=== PATIENT | female | born 1980 | race Caucasian/White ===

== ENCOUNTER 2017-05-05 11:30 | Observation (INO) ==
[2017-05-05] MEDS ORDERED: *HR* HYDROmorphone (PF) 1 MG/ML SYRINGE IVP ONE (11:54)
[2017-05-05] MEDS ORDERED: Ondansetron 4 MG/2 ML VIAL IVP ONE ×2 (11:54→11:58)
--- NOTE | 2017-05-05 11:54 | Emergency Department Note ---
Disposition Clinical Impression: Intractable abdominal pain Disposition: Admitted As Inpatient Condition: Good General Adult HPI - General Chief complaint: ED Abdominal Pain Stated complaint: RUQ pain Time Seen by Provider: 05/05/17 11:51 Source: patient Limitations: no limitations - History of Present Illness Pain Scale: 8 - Related Data Home Medications Medication Instructions Recorded Confirmed Pioglitazone [Actos] 30 mg PO DAILY 02/17/15 05/05/17 Liraglutide [Victoza 3-Kip] 1.2 mg SQ DAILY 03/28/17 05/05/17 Hyoscyamine SL [Levsin Sl] 0.125 mg SL TID 05/04/17 05/05/17 Previous Rx's Medication Instructions Recorded Promethazine [Phenergan] 25 mg PO Q8HR PRN #10 tablet 05/06/17 Allergies Allergy/AdvReac Type Severity Reaction Status Date / Time guaifenesin [From Entex LA] Allergy Mild Rash Verified 04/03/17 03:51 phenylephrine [From Entex LA] Allergy Mild Rash Verified 04/03/17 03:51 phenylpropanolamine Allergy Mild Rash Verified 04/03/17 03:51 [From Entex LA] Past Medical History - Past Medical History Medical history: Reports: cirrhosis, diabetes Surgical history: Reports: , cholecystectomy, hysterectomy Psychiatric history: Reports: depression - Social History Smoking Status: Never smoker Smokeless Tobacco Status: No Alcohol use: Reports: none Drug use: Reports: none Physical Exam - General Limitations: no limitations General appearance: alert, in no apparent distress Course Vital Signs Temperature 98.2 F 05/05/17 11:46 Pulse Rate 70 05/05/17 11:46 Respiratory Rate 18 05/05/17 11:46 Blood Pressure 134/84 05/05/17 11:46 O2 Sat by Pulse Oximetry 99 05/05/17 11:46 Temperature 97.8 F 05/06/17 10:36 Pulse Rate 69 05/06/17 10:36 Respiratory Rate 16 05/06/17 10:36 Blood Pressure 133/82 05/06/17 10:36 O2 Sat by Pulse Oximetry 97 05/06/17 10:36 Oxygen Delivery Oxygen Delivery Room Air Medical Decision Making - Lab Data Result diagrams: 05/05/17 12:07 05/06/17 05:08 Lab Results 12/29/17 12/29/17 12/29/17 Range/Units 12:07 12:07 12:07 WBC 10.1 (4.3-11.1) K/mcL RBC 4.94 (3.82-4.97) M/mcL Hgb 13.6 (11.5-15.4) g/dL Hct 41.7 (35.3-44.9) % MCV 84.4 (83.0-100.0) fL MCH 27.5 L (28.0-33.3) pg MCHC 32.6 (31.6-35.5) g/dL RDW 12.3 (11.5-14.5) % Plt Count 248 (140-400) K/mcL MPV 9.2 L (9.4-12.4) fL Immature Gran % 0.5 (0-4) % Seg Neutrophils % 78.8 % Lymphocytes % 14.2 % Monocytes % 6.3 % Eosinophils % 0.0 % Basophils % 0.2 % Neutrophils # 8.0 (1.6-8.9) K/mcL Lymphocytes # 1.4 (0.6-4.6) K/mcL Monocytes # 0.6 (0.0-1.3) K/mcL Eosinophils # 0.0 (0.0-0.6) K/mcL Basophils # 0.0 (0.0-0.2) K/mcL PT 9.9 (9.4-12.1) Seconds INR 0.9 Sodium 137 (136-145) mEq/L Potassium 3.7 (3.5-5.1) mEq/L Chloride 103 (98-107) mEq/L Carbon Dioxide 29 (23-29) mEq/L BUN 10 (6-20) mg/dL Creatinine 0.65 (0.60-1.20) mg/dL Est GFR ( Amer) > 60 (> 60) Est GFR (Non-Af Amer) > 60 (> 60) BUN/Creatinine Ratio 15 (6-26) Glucose 352 H (70-105) mg/dL Calculated Osmolality 297 (280-300) Lactic Acid (0.5-2.2) mmol/L Calcium 8.8 (8.6-10.3) mg/dL Total Bilirubin 0.3 (0.3-1.0) mg/dL Direct Bilirubin (0.0-0.2) mg/dL Indirect Bilirubin (0.0-1.2) mg/dL AST 19 (13-39) Units/L ALT 38 (7-52) Units/L Alkaline Phosphatase 128 H (34-104) Units/L Serum Total Protein 6.1 L (6.4-8.9) g/dL Albumin 3.9 (3.5-5.7) g/dL Globulin 2.2 L (2.4-3.5) g/dL Albumin/Globulin Ratio 1.8 (1.1-2.2) Amylase 27 L (29-103) Units/L Lipase 170 H (11-82) Units/L Urine Color (Yellow) Urine Clarity (Clear) Urine pH (5.0-8.0) pH Units Ur Specific [place] (1.010-1.025) Urine Protein (Neg-Trace) mg/dL Urine Glucose (UA) (Normal) mg/dL Urine Ketones (Negative) mg/dL Urine Blood (Negative) Urine Nitrite (Negative) Urine Bilirubin (Negative) Urine Urobilinogen (Normal) mg/dL Ur Leukocyte Esterase (Negative) Ur Culture Indicated? (NO) Urine Test (Negative) 05/05/17 05/05/17 05/05/17 Range/Units 12:36 12:36 13:41 WBC (4.3-11.1) K/mcL RBC (3.82-4.97) M/mcL Hgb (11.5-15.4) g/dL Hct (35.3-44.9) % MCV (83.0-100.0) fL MCH (28.0-33.3) pg MCHC (31.6-35.5) g/dL RDW (11.5-14.5) % Plt Count (140-400) K/mcL MPV (9.4-12.4) fL Immature Gran % (0-4) % Seg Neutrophils % % Lymphocytes % % Monocytes % % Eosinophils % % Basophils % % Neutrophils # (1.6-8.9) K/mcL Lymphocytes # (0.6-4.6) K/mcL Monocytes # (0.0-1.3) K/mcL Eosinophils # (0.0-0.6) K/mcL Basophils # (0.0-0.2) K/mcL PT (9.4-12.1) Seconds INR Sodium (136-145) mEq/L Potassium (3.5-5.1) mEq/L Chloride (98-107) mEq/L Carbon Dioxide (23-29) mEq/L BUN (6-20) mg/dL Creatinine (0.60-1.20) mg/dL Est GFR ( Amer) (> 60) Est GFR (Non-Af Amer) (> 60) BUN/Creatinine Ratio (6-26) Glucose (70-105) mg/dL Calculated Osmolality (280-300) Lactic Acid 1.3 (0.5-2.2) mmol/L Calcium (8.6-10.3) mg/dL Total Bilirubin 0.3 (0.3-1.0) mg/dL Direct Bilirubin 0.0 (0.0-0.2) mg/dL Indirect Bilirubin 0.3 (0.0-1.2) mg/dL AST 20 (13-39) Units/L ALT 38 (7-52) Units/L Alkaline Phosphatase 123 H (34-104) Units/L Serum Total Protein 6.0 L (6.4-8.9) g/dL Albumin 3.7 (3.5-5.7) g/dL Globulin 2.3 L (2.4-3.5) g/dL Albumin/Globulin Ratio 1.6 (1.1-2.2) Amylase (29-103) Units/L Lipase (11-82) Units/L Urine Color (Yellow) Urine Clarity (Clear) Urine pH (5.0-8.0) pH Units Ur Specific [place] (1.010-1.025) Urine Protein (Neg-Trace) mg/dL Urine Glucose (UA) (Normal) mg/dL Urine Ketones (Negative) mg/dL Urine Blood (Negative) Urine Nitrite (Negative) Urine Bilirubin (Negative) Urine Urobilinogen (Normal) mg/dL Ur Leukocyte Esterase (Negative) Ur Culture Indicated? (NO) Urine Test Negative (Negative) 05/05/17 Range/Units 13:47 WBC (4.3-11.1) K/mcL RBC (3.82-4.97) M/mcL Hgb (11.5-15.4) g/dL Hct (35.3-44.9) % MCV (83.0-100.0) fL MCH (28.0-33.3) pg MCHC (31.6-35.5) g/dL RDW (11.5-14.5) % Plt Count (140-400) K/mcL MPV (9.4-12.4) fL Immature Gran % (0-4) % Seg Neutrophils % % Lymphocytes % % Monocytes % % Eosinophils % % Basophils % % Neutrophils # (1.6-8.9) K/mcL Lymphocytes # (0.6-4.6) K/mcL Monocytes # (0.0-1.3) K/mcL Eosinophils # (0.0-0.6) K/mcL Basophils # (0.0-0.2) K/mcL PT (9.4-12.1) Seconds INR Sodium (136-145) mEq/L Potassium (3.5-5.1) mEq/L Chloride (98-107) mEq/L Carbon Dioxide (23-29) mEq/L BUN (6-20) mg/dL Creatinine (0.60-1.20) mg/dL Est GFR ( Amer) (> 60) Est GFR (Non-Af Amer) (> 60) BUN/Creatinine Ratio (6-26) Glucose (70-105) mg/dL Calculated Osmolality (280-300) Lactic Acid (0.5-2.2) mmol/L Calcium (8.6-10.3) mg/dL Total Bilirubin (0.3-1.0) mg/dL Direct Bilirubin (0.0-0.2) mg/dL Indirect Bilirubin (0.0-1.2) mg/dL AST (13-39) Units/L ALT (7-52) Units/L Alkaline Phosphatase (34-104) Units/L Serum Total Protein (6.4-8.9) g/dL Albumin (3.5-5.7) g/dL Globulin (2.4-3.5) g/dL Albumin/Globulin Ratio (1.1-2.2) Amylase (29-103) Units/L Lipase (11-82) Units/L Urine Color Yellow (Yellow) Urine Clarity Clear (Clear) Urine pH 6.5 (5.0-8.0) pH Units Ur Specific [place] > 1.030 H (1.010-1.025) Urine Protein Negative (Neg-Trace) mg/dL Urine Glucose (UA) >=1000 H (Normal) mg/dL Urine Ketones 40 H (Negative) mg/dL Urine Blood Negative (Negative) Urine Nitrite Negative (Negative) Urine Bilirubin Negative (Negative) Urine Urobilinogen Normal (Normal) mg/dL Ur Leukocyte Esterase Negative (Negative) Ur Culture Indicated? NO (NO) Urine Test (Negative) Attestation Statement - Attestation Attestation: I examined this patient and my medical decision-making was reviewed with the Resident Physician. I agree with the documented findings, disposition and treatment plan as described except to the extent set forth below. [id number] time Patient complains of right upper quadrant abdominal pain. She underwent an ERCP by gastroenterology yesterday with stent deployment. She is uncomfortable appearing on exam.
[2017-05-05] MEDS ORDERED: 0.9 % Sodium Chloride 1,000 ML IVC ONE (11:58)
[2017-05-05] MEDS ORDERED: *HR* Morphine 2 MG/ML SYRINGE IVP ONE (11:58)
[2017-05-05 12:14] LABS: Basophils % 0.2 %; Hematocrit 41.7 % (35.3-44.9); Hemoglobin 13.6 g/dL (11.5-15.4); Immature Granulocytes % 0.5 % (0-4); Lymphocytes # 1.4 K/mcL (0.6-4.6); Lymphocytes % 14.2 %; Mean Corpuscular HGB Conc 32.6 g/dL (31.6-35.5); Mean Corpuscular Hemoglobin 27.5 pg (28.0-33.3); Mean Corpuscular Volume 84.4 fL (83.0-100.0); Mean Platelet Volume 9.2 fL (9.4-12.4); Monocytes # 0.6 K/mcL (0.0-1.3); Monocytes % 6.3 %; Platelet Count 248 K/mcL (140-400); Red Blood Count 4.94 M/mcL (3.82-4.97); Red Cell Distribution Width 12.3 % (11.5-14.5); Segmented Neutrophils % 78.8 %
--- NOTE | 2017-05-05 12:17 | Emergency Department Note ---
Disposition Clinical Impression: Intractable abdominal pain Disposition: Admitted As Inpatient Condition: Good Referrals: Julieta Martinez, HELP DESK REPRESENTATIVE [Primary Care Provider] - Forms: ED Satisfaction Letter, Work/School Release Time of Disposition: 13:42 Abdominal Pain HPI - General Chief Complaint: ED Abdominal Pain Stated Complaint: RUQ pain Time Seen by Provider: 05/05/17 11:51 Source: patient Mode of arrival: ambulatory Limitations: no limitations Nursing Notes Reviewed: Yes Vital Signs Reviewed: Yes - History of Present Illness HPI Narrative: Patient was sent over from gastroenterology for admission. Patient had an ERCP done yesterday and was unable to place a stent in the sphincter LOS, but did have a pancreatic duct stent placed. Since then, the patient has had progressively worsening abdominal pain and nausea. No vomiting, fever, chest pain or shortness of breath. No diarrhea. Was sent over under the impression that she would be a direct admission, however, there were no admission orders ordered admitting diagnosis so she was brought here. States that her pain is in her right side radiating to her mid abdomen, fairly constant, sharp and stabbing in nature. Sometimes worse after eating. Has had similar symptoms previously. Pain Scale: 8 - Related Data Home Medications Medication Instructions Recorded Confirmed Pioglitazone [Actos] 30 mg PO DAILY 02/17/15 05/04/17 Liraglutide [Victoza 3-Kip] 1.2 mg SQ DAILY 03/28/17 05/04/17 Hyoscyamine SL [Levsin SL] 0.125 mg SL TID 05/04/17 05/04/17 Promethazine [Phenergan] 25 mg PO Q8HR 05/04/17 05/04/17 Allergies Allergy/AdvReac Type Severity Reaction Status Date / Time guaifenesin [From Entex LA] Allergy Mild Rash Verified 04/03/17 03:51 phenylephrine [From Entex LA] Allergy Mild Rash Verified 04/03/17 03:51 phenylpropanolamine Allergy Mild Rash Verified 04/03/17 03:51 [From Entex LA] All systems ED: reviewed and negative except as stated. Constitutional: Denies: fever Cardiovascular: Denies: chest pain Gastrointestinal: Reports: abdominal pain, nausea Genitourinary: Denies: dysuria Musculoskeletal: Denies: back pain Psychiatric: Denies: anxiety Abdominal Pain PMH - Past Medical History Medical history: Reports: cirrhosis, diabetes Female Surgical History: Reports: , hysterectomy, Tonsillectomy Psychiatric history: Reports: depression - Social History Smoking status: Never smoker Alcohol use: Reports: none Drug use: Reports: none Physical Exam - General Limitations: no limitations General appearance: alert, in no apparent distress - Head Head exam: atraumatic, normocephalic, normal inspection - Chest Chest inspection: Present: normal inspection, symmetric chest wall rise - Respiratory Respiratory exam: Present: normal lung sounds bilaterally - Cardiovascular Cardiovascular exam: Present: regular rate, normal rhythm, normal heart sounds - Abdominal Exam Abdominal exam: Present: soft, tenderness. Absent: guarding, rebound Abdominal tenderness: Present: RUQ, epigastrium - Extremities Exam Extremities exam: Present: normal inspection, full ROM. Absent: tenderness, pedal edema - Back Exam Back exam: Present: normal inspection, full ROM. Absent: tenderness - Neurological Exam Neurological exam: Present: alert, oriented X3 - Psychiatric Psychiatric exam: Present: normal affect, normal mood - Skin Skin exam: Present: warm, dry, intact, normal color Course Course Narrative: Sent over for admission after an ERCP yesterday. Having abdominal pain. Labs, fluids, pain meds anti-emetics CT with IV contrast and admission. Patient overall looks well - Reevaluation(s) Reevaluation #1: Dr. Martin down to eval patient in ED. would like her admitted for intractable abd pain. Vital Signs Temperature 98.2 F 05/05/17 11:46 Pulse Rate 70 05/05/17 11:46 Respiratory Rate 18 05/05/17 11:46 Blood Pressure 134/84 05/05/17 11:46 O2 Sat by Pulse Oximetry 99 05/05/17 11:46 Temperature 98.2 F 05/05/17 11:46 Pulse Rate 73 05/05/17 13:22 Respiratory Rate 12 05/05/17 13:22 Blood Pressure 134/86 05/05/17 13:22 O2 Sat by Pulse Oximetry 99 05/05/17 11:46 Oxygen Delivery Oxygen Delivery Room Air Abdominal Pain - Medical Records Medical records reviewed: Yes I reviewed the patient's medical records. - Lab Data Lab results reviewed: Yes I reviewed the patient's lab results. Result diagrams: 05/05/17 12:07 05/05/17 12:07 Lab Results 05/05/17 05/05/17 05/05/17 Range/Units 12:07 12:07 12:07 WBC 10.1 (4.3-11.1) K/mcL RBC 4.94 (3.82-4.97) M/mcL Hgb 13.6 (11.5-15.4) g/dL Hct 41.7 (35.3-44.9) % MCV 84.4 (83.0-100.0) fL MCH 27.5 L (28.0-33.3) pg MCHC 32.6 (31.6-35.5) g/dL RDW 12.3 (11.5-14.5) % Plt Count 248 (140-400) K/mcL MPV 9.2 L (9.4-12.4) fL Immature Gran % 0.5 (0-4) % Seg Neutrophils % 78.8 % Lymphocytes % 14.2 % Monocytes % 6.3 % Eosinophils % 0.0 % Basophils % 0.2 % Neutrophils # 8.0 (1.6-8.9) K/mcL Lymphocytes # 1.4 (0.6-4.6) K/mcL Monocytes # 0.6 (0.0-1.3) K/mcL Eosinophils # 0.0 (0.0-0.6) K/mcL Basophils # 0.0 (0.0-0.2) K/mcL PT 9.9 (9.4-12.1) Seconds INR 0.9 Sodium 137 (136-145) mEq/L Potassium 3.7 (3.5-5.1) mEq/L Chloride 103 (98-107) mEq/L Carbon Dioxide 29 (23-29) mEq/L BUN 10 (6-20) mg/dL Creatinine 0.65 (0.60-1.20) mg/dL Est GFR ( Amer) > 60 (> 60) Est GFR (Non-Af Amer) > 60 (> 60) BUN/Creatinine Ratio 15 (6-26) Glucose 352 H (70-105) mg/dL Calculated Osmolality 297 (280-300) Lactic Acid (0.5-2.2) mmol/L Calcium 8.8 (8.6-10.3) mg/dL Total Bilirubin 0.3 (0.3-1.0) mg/dL Direct Bilirubin (0.0-0.2) mg/dL Indirect Bilirubin (0.0-1.2) mg/dL AST 19 (13-39) Units/L ALT 38 (7-52) Units/L Alkaline Phosphatase 128 H (34-104) Units/L Serum Total Protein 6.1 L (6.4-8.9) g/dL Albumin 3.9 (3.5-5.7) g/dL Globulin 2.2 L (2.4-3.5) g/dL Albumin/Globulin Ratio 1.8 (1.1-2.2) Amylase 27 L (29-103) Units/L Lipase 170 H (11-82) Units/L 05/05/17 05/05/17 Range/Units 12:36 12:36 WBC (4.3-11.1) K/mcL RBC (3.82-4.97) M/mcL Hgb (11.5-15.4) g/dL Hct (35.3-44.9) % MCV (83.0-100.0) fL MCH (28.0-33.3) pg MCHC (31.6-35.5) g/dL RDW (11.5-14.5) % Plt Count (140-400) K/mcL MPV (9.4-12.4) fL Immature Gran % (0-4) % Seg Neutrophils % % Lymphocytes % % Monocytes % % Eosinophils % % Basophils % % Neutrophils # (1.6-8.9) K/mcL Lymphocytes # (0.6-4.6) K/mcL Monocytes # (0.0-1.3) K/mcL Eosinophils # (0.0-0.6) K/mcL Basophils # (0.0-0.2) K/mcL PT (9.4-12.1) Seconds INR Sodium (136-145) mEq/L Potassium (3.5-5.1) mEq/L Chloride (98-107) mEq/L Carbon Dioxide (23-29) mEq/L BUN (6-20) mg/dL Creatinine (0.60-1.20) mg/dL Est GFR ( Amer) (> 60) Est GFR (Non-Af Amer) (> 60) BUN/Creatinine Ratio (6-26) Glucose (70-105) mg/dL Calculated Osmolality (280-300) Lactic Acid 1.3 (0.5-2.2) mmol/L Calcium (8.6-10.3) mg/dL Total Bilirubin 0.3 (0.3-1.0) mg/dL Direct Bilirubin 0.0 (0.0-0.2) mg/dL Indirect Bilirubin 0.3 (0.0-1.2) mg/dL AST 20 (13-39) Units/L ALT 38 (7-52) Units/L Alkaline Phosphatase 123 H (34-104) Units/L Serum Total Protein 6.0 L (6.4-8.9) g/dL Albumin 3.7 (3.5-5.7) g/dL Globulin 2.3 L (2.4-3.5) g/dL Albumin/Globulin Ratio 1.6 (1.1-2.2) Amylase (29-103) Units/L Lipase (11-82) Units/L - Radiology Data Radiology results reviewed: Yes I reviewed the patient's radiology results. - EKG Data EKG attestation: Yes I reviewed and interpreted this EKG. EKG results narrative: Sinus rhythm, rate 78, WA interval 150, QRS 85, QTC 406, normal axis, no acute ischemic changes, no previous available
[2017-05-05 12:19] LABS: INR 0.9; Prothrombin Time 9.9 Seconds (9.4-12.1)
[2017-05-05 12:29] LABS: Alanine Aminotransferase 38 Units/L (7-52); Albumin 3.9 g/dL (3.5-5.7); Albumin/Globulin Ratio 1.8 (1.1-2.2); Alkaline Phosphatase 128 Units/L (34-104); Amylase 27 Units/L (29-103); Aspartate Amino Transferase 19 Units/L (13-39); BUN/Creatinine Ratio 15 (6-26); Bilirubin,Total 0.3 mg/dL (0.3-1.0); Blood Urea Nitrogen 10 mg/dL (6-20); Calcium 8.8 mg/dL (8.6-10.3); Carbon Dioxide 29 mEq/L (23-29); Chloride 103 mEq/L (98-107); Globulin 2.2 g/dL (2.4-3.5); Glucose 352 mg/dL (70-105); Lipase 170 Units/L (11-82); Osmolality,Calculated 297 (280-300); Potassium 3.7 mEq/L (3.5-5.1); Sodium 137 mEq/L (136-145); Total Protein 6.1 g/dL (6.4-8.9); eGFR For African Americans > 60 (> 60); eGFR For Non-African Americans > 60 (> 60)
[2017-05-05] MEDS ORDERED: Hyoscyamine 0.5 MG/ML MLS IVP ONE (12:36)
[2017-05-05 13:00] LABS: Albumin 3.7 g/dL (3.5-5.7); Albumin/Globulin Ratio 1.6 (1.1-2.2); Bilirubin,Indirect 0.3 mg/dL (0.0-1.2); Bilirubin,Total 0.3 mg/dL (0.3-1.0); Globulin 2.3 g/dL (2.4-3.5)
[2017-05-05 13:54] LABS: Bilirubin,Urine Negative (Negative); Blood,Urine Negative (Negative); Clarity,Urine Clear (Clear); Color,Urine Yellow (Yellow); Glucose,Urine (UA) >=1000 mg/dL (Normal); Ketones,Urine 40 mg/dL (Negative); Leukocyte Esterase,Urine Negative (Negative); Nitrite,Urine Negative (Negative); PH,Urine 6.5 pH Units (5.0-8.0); Protein,Urine Negative (Neg-Trace); Specific Gravity,Urine > 1.030 (1.010-1.025); Urobilinogen,Urine Normal (Normal)
[2017-05-05] MEDS ORDERED: Mag Hydrox/Al Hydrox/Simeth 30 ML UDC PO PRN (14:25)
[2017-05-05] MEDS ORDERED: Ondansetron 4 MG/2 ML VIAL IVP PRN (14:25)
[2017-05-05] MEDS ORDERED: Naloxone 0.4 MG/ML INJ IVP PRN (14:25)
[2017-05-05] MEDS ORDERED: Acetaminophen 325 MG TABLET PO PRN (14:25)
[2017-05-05] MEDS ORDERED: MOM Conc 10 ML UD.LIQ PO PRN (14:25)
--- NOTE | 2017-05-05 14:34 | Internal Med History&Physical ---
<Nikhil Turcios - Last Filed: 05/05/17 14:31> Date of Encounter: 05/05/17 Time of Encounter: 14:31 Assessment and Plan (1) Abdominal pain Status: Acute - Had ERCP yesterday with stent deployed in the pancreatic duct. - mildly elevated lipase likely due to abd procedure. - Pain without rebound, likely procedure related. - supportive care with IVF and pain meds. - GI following. Qualifiers: Abdominal location: right upper quadrant Qualified Code(s): R10.11 - Right upper quadrant pain (2) S/P ERCP Status: Acute - stable and monitoring. (3) Diabetes Status: Chronic - Accu check AC+HS. - insulin sliding scale. Qualifiers: Diabetes mellitus type: type 2 Diabetes mellitus complication status: without complication Diabetes mellitus correction insulin use: without gum machine filler use Qualified Code(s): E11.9 - Type 2 diabetes mellitus without complications Internal Medicine - H&P: HPI History of present illness: Ms. Valente is a 36 year old female with past medical history for biliary obstruction, diabetes, and cholecystitis status post cholecystectomy presented with abdominal pain left gastrointestinal procedure. Patient was sent over from gastroenterology for admission. Patient had an ERCP done yesterday and was unable to place a stent in the sphincter LOS, but did have a pancreatic duct stent placed. Since then, the patient has had progressively worsening abdominal pain and nausea. No vomiting, fever, chest pain or shortness of breath. No diarrhea. Was sent over under the impression that she would be a direct admission, however, there were no admission orders ordered admitting diagnosis so she was brought here. States that her pain is in her right side radiating to her mid abdomen, fairly constant, sharp and stabbing in nature. Sometimes worse after eating. Has had similar symptoms previously. At the ED, vital signs were stable, physical exam revealed right upper quadrant tenderness without rebound. Labs revealed slightly elevated lipase. Due to her symptoms, she will be admitted for observation. Past Med Surg Social Fam HX - Past Medical History Medical history: cirrhosis, diabetes Psychiatric history: depression - Past Surgical History Surgical History: , cholecystectomy, hysterectomy - Social History Smoking Status: Never smoker Smokeless Tobacco Status: No Alcohol use: none Drug use: none - Family History Mother Adopted: No Family Member Ethnicity: Non- Living Status: Still Living Hx Family Cardiac Disorders: Yes (HYPERTENSION) Hx Family Respiratory Disorders: Yes (ASTHMA) Hx Family Cancer: No Hx Family GI Disorders: No Hx Family Endocrine Disorder: Yes (DIABETES) Hx Family Neuromuscular Disorders: No Hx Family Neurologic Disorders: No Hx Family HEENT Disorders: No Hx Family Autoimmune Disorders: No Internal Medicine - H&P: Meds Pioglitazone [Actos] 30 mg PO DAILY 02/17/15 [History] Liraglutide [Victoza 3-Kip] 1.2 mg SQ DAILY 03/28/17 [History] Hyoscyamine SL [Levsin Sl] 0.125 mg SL TID 05/04/17 [History] Promethazine [Phenergan] 25 mg PO Q8HR PRN #10 tablet 05/06/17 [Rx] 3 Allergy/AdvReac Type Severity Reaction Status Date / Time guaifenesin [From Entex LA] Allergy Mild Rash Verified 04/03/17 03:51 phenylephrine [From Entex LA] Allergy Mild Rash Verified 04/03/17 03:51 phenylpropanolamine Allergy Mild Rash Verified 04/03/17 03:51 [From Entex LA] All Systems PM: A 10-system review of systems was performed and is negative for pertinent findings except as documented above in the HPI. Review of systems: REVIEW OF SYSTEMS: CONSTITUTIONAL: No weight loss, fever, chills, weakness or fatigue. HEENT: Eyes: No visual loss, blurred vision, double vision or yellow sclerae. Ears, Nose, Throat: No hearing loss, sneezing, congestion, runny nose or sore throat. SKIN: No rash or itching. CARDIOVASCULAR: No chest pain, chest pressure or chest discomfort. No palpitations or edema. RESPIRATORY: No shortness of breath, cough or sputum. GASTROINTESTINAL: see HPI. GENITOURINARY: No dysuria, urgency, or frequency. NEUROLOGICAL: No headache, dizziness, syncope, paralysis, ataxia, numbness or tingling in the extremities. No change in bowel or bladder control. MUSCULOSKELETAL: No muscle, back pain, joint pain or stiffness. HEMATOLOGIC: No anemia, bleeding or bruising. LYMPHATICS: No enlarged nodes. No history of splenectomy. PSYCHIATRIC: No history of depression or anxiety. ENDOCRINOLOGIC: No reports of sweating, cold or heat intolerance. No polyuria or polydipsia. - Constitutional Vitals: Temp Pulse Resp BP Pulse Ox 98.2 F 73 12 134/86 99 05/05/17 11:46 05/05/17 13:22 05/05/17 13:22 05/05/17 13:22 05/05/17 11:46 Exam: PHYSICAL EXAMINATION: GENERAL APPEARANCE: The patient is alert, oriented and in no acute distress. HEENT: Head is normocephalic. The sinuses are nontender. Pupils are equal and reactive. The nares are patent. Oropharynx clear without lesions. NECK: Supple without lymphadenopathy. HEART: Regular rate and rhythm. LUNGS: No crackles or wheezes are heard. ABDOMEN: Soft, tender to deep palpation at the RUQ without rebound. Inguinal area is normal. EXTREMITIES: Without cyanosis, clubbing or edema. NEUROLOGICAL: Gross nonfocal. SKIN: Warm and dry without any rash. Internal Med - H&P Results - Labs CBC & Chem 7: 05/05/17 12:07 05/05/17 12:07 <Mairan Santos - Last Filed: 06/02/17 09:15> Date of Encounter: 06/02/17 Internal Medicine - H&P: HPI History of present illness: Ms. Valente is a 37 year old female All Systems PM: A 10-system review of systems was performed and is negative for pertinent findings except as documented above in the HPI. - Constitutional Vitals: Temp Pulse Resp BP Pulse Ox 97.8 F 69 16 133/82 97 05/06/17 10:36 05/06/17 10:36 05/06/17 10:36 05/06/17 10:36 05/06/17 10:36 Internal Med - H&P Results - Labs CBC & Chem 7: 05/05/17 12:07 05/06/17 05:08 - Attending Attestation I personally and independently interviewed and examined the patient with PLANE TENDER, and I reviewed the patient's medical record with her. I am in agreement with the assessment and proposed treatment plan. I discussed my findings and recommendation with the patient and answer all questions. The patient's medical records were edited to accurately reflect this encounter.
[2017-05-05] MEDS: 0.9 % Sodium Chloride 1,000 ML IVC SCH (15:32)
[2017-05-05] MEDS: Hyoscyamine SL 0.125 MG TAB.SUBL SL SCH ×2 (15:32→21:22)
[2017-05-05] MEDS: *HR* HYDROmorphone (PF) 1 MG/ML SYRINGE IVP PRN ×2 (15:48→21:22)
--- NOTE | 2017-05-05 18:04 | Gastroenterology Consult Note ---
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 Now with similar episode but had ERCP yesterday which could have precipitated the attack. Lipase mildly elevated. LFTS normal, CT negative for acute path. Rec: NPO IV fluids at 200 ml /hr Pain control If pain better in am then can be started on clear and pt to f/u with GI as out pt next week. (2) Abdominal pain Current Visit: Yes Status: Acute Qualifiers: Abdominal location: right upper quadrant Qualified Code(s): R10.11 - Right upper quadrant pain - Time Spent With Patient Total time spent is greater than 50% in coordination of care (as documented) at patient's floor/unit and/or counseling patient: GI History of Present Illness - Data of Consult Requesting Physician: Kandi Munoz MD - Consult Narrative Reason for consult: Abd pain History of present illness: Ms. 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 Pt had yesterday an ERCP for poss SOD dysfunction. Post procedure had abd pain at home , not better this am so came to ER and had CT doen along with labs. Ct abd negative for acute path and lipase only mildly elevated. per pt pain is similar to her previous SOD attacks with pain in RUQ along with nausea. Felling cold, but no fever , passing gas, no rash, some difficulty swallowing but per pt can be due to dry throat. Admitted for pain control/ Pt was seen in ER and case was d/W with ER attending. Past Med Surg Social Fam HX - Past Medical History Medical history: cirrhosis, diabetes Psychiatric history: depression - Past Surgical History Surgical History: , cholecystectomy, hysterectomy - Social History Smoking Status: Never smoker Smokeless Tobacco Status: No Alcohol use: none Drug use: none - Family History Mother Adopted: No Family Member Ethnicity: Non- Living Status: Still Living Hx Family Cardiac Disorders: Yes (HYPERTENSION) Hx Family Respiratory Disorders: Yes (ASTHMA) Hx Family Cancer: No Hx Family GI Disorders: No Hx Family Endocrine Disorder: Yes (DIABETES) Hx Family Neuromuscular Disorders: No Hx Family Neurologic Disorders: No Hx Family HEENT Disorders: No Hx Family Autoimmune Disorders: No Review of Systems: ROS as per [employer]. No SOB or pulpatation. No fever. - Constitutional Vitals: Temp Pulse Resp BP Pulse Ox 98 F 93 15 121/77 97 05/05/17 16:07 05/05/17 16:07 05/05/17 16:07 05/05/17 16:07 05/05/17 16:07 General appearance: Present: A&O X 3, pleasant - Head Head exam: Present: atraumatic - Eye Eye exam: Present: sclera anicteric - Neck Neck exam general surgery: Present: supple - GI/Abdominal GI/Abdominal exam: Present: soft Additional comments: tander RUQ Results - Labs CBC & Chem 7: 05/05/17 12:07 05/05/17 12:07 Labs: Last Result Calcium 8.8 mg/dL (8.6-10.3) 05/05/17 12:07 Entire Visit Hgb 13.6 g/dL (11.5-15.4) 05/05/17 12:07 Hct 41.7 % (35.3-44.9) 05/05/17 12:07 PT 9.9 Seconds (9.4-12.1) 05/05/17 12:07 Total Bilirubin 0.3 mg/dL (0.3-1.0) 05/05/17 12:36 AST 20 Units/L (13-39) 05/05/17 12:36 ALT 38 Units/L (7-52) 05/05/17 12:36 Amylase 27 Units/L (29-103) L 05/05/17 12:07 Lipase 170 Units/L (11-82) H 05/05/17 12:07 - ABG ABG results: PT/INR, D-dimer PT 9.9 Seconds (9.4-12.1) 05/05/17 12:07 Consult Discharge Plan - Plan Referrals: Julieta Martinez, TECHNICAL OPERATOR [Primary Care Provider] -
[2017-05-06] MEDS: 0.9 % Sodium Chloride 1,000 ML IVC SCH (01:46)
[2017-05-06] MEDS: *HR* HYDROmorphone (PF) 1 MG/ML SYRINGE IVP PRN (01:46)
[2017-05-06 05:38] LABS: Alanine Aminotransferase 28 Units/L (7-52); Albumin/Globulin Ratio 1.8 (1.1-2.2); Alkaline Phosphatase 87 Units/L (34-104); Aspartate Amino Transferase 14 Units/L (13-39); BUN/Creatinine Ratio 17 (6-26); Bilirubin,Total 0.3 mg/dL (0.3-1.0); Blood Urea Nitrogen 9 mg/dL (6-20); Calcium 7.6 mg/dL (8.6-10.3); Carbon Dioxide 26 mEq/L (23-29); Chloride 110 mEq/L (98-107); Globulin 1.7 g/dL (2.4-3.5); Glucose 204 mg/dL (70-105); Osmolality,Calculated 295 (280-300); Potassium 3.6 mEq/L (3.5-5.1); Sodium 140 mEq/L (136-145); Total Protein 4.7 g/dL (6.4-8.9); eGFR For African Americans > 60 (> 60); eGFR For Non-African Americans > 60 (> 60)
[2017-05-06] MEDS ORDERED: D5% in Water 1,000 ML IVC PRN (08:20)
[2017-05-06] MEDS ORDERED: *HR* Dextrose 50 % in Water (Syg) 50 ML SYRINGE IVP PRN (08:20)
[2017-05-06] MEDS ORDERED: Dextrose Gel 15 GM/37.5 ML TUBE PO PRN ×2 (08:20)
--- NOTE | 2017-05-06 08:39 | Electrocardiograph Report ---
[facility] Test Date: 2017-05-05 Pat Name: Maki Valente Department: [id number] Room: 3A53 Gender: F Training Associate: BAM : 1980 Requested By: Domingo Nicholas Order Number: [id number] Reading MD: Korey Champion MD Measurements Intervals [place] Rate: 78 P: 18 NV: 150 QRS: 14 QRSD: 85 T: 3 QT: 372 QTc: 406 Interpretive Statements SINUS RHYTHM Electronically Signed On 05-06-2017 8:37:19 EST by Korey Champion MD
[2017-05-06] MEDS: Hyoscyamine SL 0.125 MG TAB.SUBL SL SCH (08:55)
[2017-05-06] MEDS ORDERED: (Liraglutide [Victoza 3-Pak] 1.2 MG) SQ SCH (09:00)
[2017-05-06] MEDS ORDERED: *HR* Pioglitazone 15 MG TABLET PO SCH (09:00)
[2017-05-06 10:42] VITALS: BP 133/82
[2017-05-06] MEDS ORDERED: Insulin LISPRO 300 UNITS/3 ML VIAL SQ SCH ×2 (11:30→21:00)
--- NOTE | 2017-05-06 12:11 | Discharge Summary ---
Date of Encounter: 05/06/17 Time of Encounter: 09:50 - Discharge Diagnosis (1) Abdominal pain Priority: Primary Status: Acute Comments: Recurrent right upper quadrant pain which could have been precipitated by ERCP done 2 days ago Mildly elevated lipase Patient now tolerating clear liquid diet well, pain has now resolved GI has evaluated, and advised outpatient follow-up Patient states she wants to go home today and will follow up with the GI Advised to return if symptoms worsen, follow up PCP as well Qualifiers: Abdominal location: right upper quadrant Qualified Code(s): R10.11 - Right upper quadrant pain (2) S/P ERCP Priority: Primary Status: Acute Comments: ERCP done on 03/04/2017 Follow-up with GI as outpatient (3) Diabetes Priority: Primary Status: Chronic Comments: Type 2 diabetes mellitus, [id number], hyperglycemia Continue home dose of Actos, Victoza Qualifiers: Diabetes mellitus type: type 2 Diabetes mellitus complication status: without complication Diabetes mellitus mcc insulin use: 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 Qualified Code(s): E11.9 - Type 2 diabetes mellitus without complications - Discharge Medications Prescriptions: Promethazine [Phenergan] 25 mg PO Q8HR PRN #10 tablet PRN Reason: Nausea Home Medications: Pioglitazone [Actos] 30 mg PO DAILY 02/17/15 [History] Liraglutide [Victoza 3-Kip] 1.2 mg SQ DAILY 03/28/17 [History] Hyoscyamine SL [Levsin Sl] 0.125 mg SL TID 05/04/17 [History] Promethazine [Phenergan] 25 mg PO Q8HR PRN #10 tablet 05/06/17 [Rx] Allergies/Adverse Reactions: 3 Allergy/AdvReac Type Severity Reaction Status Date / Time guaifenesin [From Entex LA] Allergy Mild Rash Verified 04/03/17 03:51 phenylephrine [From Entex LA] Allergy Mild Rash Verified 04/03/17 03:51 phenylpropanolamine Allergy Mild Rash Verified 04/03/17 03:51 [From Entex LA] Date of admission: 05/05/17 13:50 Primary care physician: Julieta Martinez CNP Anticipated date of discharge: 05/06/17 - Patient Status Disposition: Home, Self-Care Condition: Good Functional capacity at discharge: independent ambulation Overall status at discharge: patient is back to baseline - Discharge Instructions Follow Up With: Julieta Martinez CNP [Primary Care Provider] - James Martin MD [Partnered Physician] - Additional Instructions: - Continue all meds as per discharge instructions - Return if symptoms worsen - Follow with GI and PCP - Diet and Activity Activity: increase activity as tolerated, resume usual activities as tolerated Diet: low fat, low cholesterol, low salt diet Hospital course: Ms. Valente is a 36 year old female with past medical history of cirrhosis and diabetes. Patient presented to the ED with complaints of abdominal pain. Patient had a ERCP with stent placement about 2 days ago. Pain could have been precipitated due to the recent ERCP. Lipase was slightly elevated. CT abdomen and pelvis did not show any acute findings. GI has evaluated the patient. Advised to continue clear liquid diet and follow-up as outpatient. Patient's abdominal pain or nausea now resolved. Patient is tolerating her diet well. States she feels better and wants to go home. Patient and family members have been explained about her condition plan cannot detail. They understood and agreed. No unanswered questions. No other acute events or complications during her stay in the hospital. Abdominal pain was likely due to possible acute pancreatitis likely due to procedure. Symptoms have now resolved. Continue all home medications. Advised to return if symptoms worsen. Follow up with PCP and GI as outpatient. - Time Spent with Patient Total time spent providing and/or coordinating discharge services: Less than 30 minutes - Constitutional Vitals: Temp Pulse Resp BP Pulse Ox 97.8 F 69 16 133/82 97 05/06/17 10:36 05/06/17 10:36 05/06/17 10:36 05/06/17 10:36 05/06/17 10:36 General appearance: Present: cooperative, A&O X 3, pleasant, no acute distress, answers questions appropriately - Head Head exam: Present: atraumatic - Eye Eye exam: Present: EOMI - ENT ENT exam: Present: mucous membranes moist - Respiratory Respiratory exam: Present: CTAB. Absent: accessory muscle use, chest wall tenderness, rales, respiratory distress, rhonchi, wheezes, tachypnea - Cardiovascular Cardiovascular exam: Present: RRR, +S1, +S2 - GI/Abdominal GI/Abdominal exam: Present: soft, no peritoneal signs. Absent: distended, firm , guarding, tenderness - Extremities Exam Extremities exam: Present: radial pulses palpable and symmetrical. Absent: calf tenderness, cyanotic, pedal edema - Neurological Exam Neurological exam: Present: alert, oriented X3, no focal deficits. Absent: facial droop, speech deficit
== END 2017-05-06 13:04 | disposition home or self-care (01) ==
LOC: EMEROO 11:30 → 3ANU 11:30
PROVIDERS: ADMIT Student in an Organized Health Care Education/Training Program; ATTEND Student in an Organized Health Care Education/Training Program